=== PATIENT | male | born 1990 | race Caucasian/White ===

== ENCOUNTER 2017-03-14 08:30 | Day surgery (SDC) | payer MEDICAID ==
[~2017-03-14] VITALS: Ht 188 cm; Wt 86.6 kg
[2017-03-14] MEDS ORDERED: LACTATED RINGERS 1,000 ML IV SCH (09:20)
[2017-03-14] MEDS ORDERED: FENTANYL CITRATE/PF 50MCG/ML 2ML VIAL ONE ×2 (11:59→12:42)
[2017-03-14] MEDS ORDERED: MIDAZOLAM HCL 2 MG/2 ML VIAL ONE (11:59)
[2017-03-14] MEDS ORDERED: PROPOFOL 200MG/20ML VIAL IV ONE (11:59)
[2017-03-14] MEDS ORDERED: LIDOCAINE HCL/PF 1% 10 MG/ML 5ML VIAL ONE (12:00)
[2017-03-14] MEDS ORDERED: BUPIVACAINE HCL/PF 0.5% (5MG/ML) 10ML ONE (12:01)
[2017-03-14] MEDS ORDERED: NORMAL SALINE 0.9% 10 ML SYR ONE (12:01)
[2017-03-14] MEDS ORDERED: BACITRACIN 50,000 UNITS/VIAL ONE (12:01)
[2017-03-14] MEDS ORDERED: LIDOCAINE HCL 1% 20ML VIAL (Pyxis) INJ ONE (12:01)
[2017-03-14] MEDS ORDERED: CEFAZOLIN SODIUM 1000MG/VIAL ONE (12:16)
[2017-03-14] MEDS ORDERED: LABETALOL HCL 5MG/ML VIAL 20ML IV PRN (12:30)
[2017-03-14] MEDS ORDERED: ONDANSETRON HCL 4MG/2ML VIAL IV PRN (12:30)
[2017-03-14] MEDS ORDERED: MEPERIDINE HCL/PF 25MG/ML CPJ IV PRN (12:30)
[2017-03-14] MEDS ORDERED: HYDROMORPHONE HCL/PF 2MG/ML CPJ IV PRN (12:30)
[2017-03-14] MEDS ORDERED: DEXAMETHASONE 4MG/ML 1ML VIAL ONE (12:45)
[2017-03-14] MEDS ORDERED: ONDANSETRON HCL 4MG/2ML VIAL ONE (12:45)
[2017-03-14] MEDS ORDERED: SKIN ADHESIVE 0.7 GM EA TOP ONE (12:54)
[2017-03-14] MEDS ORDERED: KETOROLAC 30MG/ML VIAL IV SCH (13:45)
== END 2017-03-14 15:20 | disposition home or self-care (01) ==
LOC: OR 08:30
PROVIDERS: ATTEND Specialist
DX: L73.2 Hidradenitis suppurativa (principal); E78.5 Hyperlipidemia, unspecified; E78.00 Pure hypercholesterolemia, unspecified
CPT/HCPCS: 11450; 88307; A4216; J0690; J1100; J2250; J2405; J3010; J3490; J7120; J2704